=== PATIENT | male | born 1965 | race Caucasian/White ===

== ENCOUNTER 2019-08-08 12:24 | Inpatient (IN) | payer BC ==
[~2019-08-08 12:24] MED LIST: CEFAZOLIN 2 Gram 2 GM/50 ML BAG IVPB ONE; CELECOXIB 100 MG CAPSULE PO ONE; FAMOTIDINE 20MG TABLET PO ONE; MECLIZINE 25 MG TABLET PO ONE; METOCLOPRAMIDE 10 MG TABLET PO ONE; VANCOMYCIN 1GM/200ML PREMIX 1 GM/200 ML PIGGYBACK IVPB ONE
[2019-08-08 13:42] LABS: ABO GROUP A; ANTIBODY SCREEN NEGATIVE (NEGATIVE); RH TYPE POSITIVE
[2019-08-08] MEDS ORDERED: RINGERS SOLUTION,LACTATED 1,000 ML IV ONE ×2 (14:11→15:00)
[2019-08-08] MEDS ORDERED: BUPIVACAINE 0.5% W/EPI MPF 30 ML VIAL SQ ONE (14:38)
[2019-08-08] MEDS ORDERED: TRANEXAMIC ACID 1,000 MG/10 ML ML IU ONE (14:39)
[2019-08-08] MEDS ORDERED: TRANEXAMIC ACID 1,000 MG/10 ML ML IVPB ONE (14:39)
[2019-08-08] MEDS ORDERED: BISACODYL 10 MG SUPP RC PRN (15:51)
[2019-08-08] MEDS ORDERED: HYDROCODONE/APAP 10/325 TABLET PO PRN ×2 (15:51)
[2019-08-08] MEDS ORDERED: AL HYDROX/MAG HYDROX 30ML UD PO PRN (15:51)
[2019-08-08] MEDS ORDERED: ACETAMINOPHEN W/ CODEINE 300MG/60MG TABLET PO PRN ×2 (15:51)
[2019-08-08] MEDS ORDERED: HYDROMORPHONE HCL 2 MG/ML VIAL IM PRN (15:51)
[2019-08-08] MEDS ORDERED: ZOLPIDEM TARTRATE 5 MG TABLET PO PRN (15:51)
[2019-08-08] MEDS ORDERED: TRAMADOL HCL 50 MG TABLET PO PRN (15:51)
[2019-08-08] MEDS ORDERED: ONDANSETRON HCL IV 4 MG/2 ML VIAL IVP PRN (15:51)
[2019-08-08] MEDS ORDERED: MAGNESIUM HYDROXIDE 30 ML UDC PO PRN (15:51)
[2019-08-08] MEDS ORDERED: NALOXONE 0.4 MG/1 ML VIAL IVP PRN (15:51)
[2019-08-08] MEDS ORDERED: DIPHENHYDRAMINE HCL 25 MG CAPSULE PO PRN (15:51)
[2019-08-08] MEDS ORDERED: KETOROLAC 30 MG/ML VIAL IVP PRN (15:51)
[2019-08-08] MEDS ORDERED: ACETAMINOPHEN 325 MG TAB PO PRN (15:51)
[2019-08-08] MEDS: POTASSIUM CHLORIDE/D5-0.9%NACL 20 MEQ/1,000 ML BAG IV SCH (17:20)
[2019-08-08] MEDS ORDERED: OXYCODONE/APAP 10MG-325MG TABLET PO PRN (18:40)
[2019-08-08] MEDS: OXYCODONE/APAP 10MG-325MG TABLET PO PRN (18:44)
[2019-08-08] MEDS: DOCUSATE SODIUM 100 MG CAPSULE PO SCH (21:12)
[2019-08-08] MEDS: CEFAZOLIN 2 Gram 2 GM/50 ML BAG IVPB SCH (21:12)
[2019-08-09] MEDS: OXYCODONE/APAP 10MG-325MG TABLET PO PRN ×4 (00:11→12:47)
[2019-08-09] MEDS: POTASSIUM CHLORIDE/D5-0.9%NACL 20 MEQ/1,000 ML BAG IV SCH ×2 (02:23→09:17)
[2019-08-09] MEDS: CEFAZOLIN 2 Gram 2 GM/50 ML BAG IVPB SCH ×2 (05:53→13:44)
[2019-08-09 06:56] LABS: HEMATOCRIT 37.7 % (42.0-52.0); HEMOGLOBIN 12.3 gm/dl (14.0-18.0)
[2019-08-09 07:18] LABS: BLOOD UREA NITROGEN 12 mg/dL (6-20); CREATININE 0.9 mg/dL (0.7-1.2); EST GLOMERULAR FILTRATION RATE > 60 mL/min; GLUCOSE,RANDOM 127 mg/dL (74-109)
--- NOTE | 2019-08-09 08:35 | Rehab Evaluation ---
Patient Information - Patient Information Diagnosis: DJD right hip Ordered Treatment: OT Evaluate and Treat Status: Initial Evaluation Surgery: Yes (right KARYNA) Date of Surgery: 08/08/19 Past Medical/Surgical Hx: PAST MEDICAL/SURGICAL HISTORY Surgery to Affected Area? Yes Recent Surgery? Past Surgical History LTHA RTKA STOMACH SLEEVE HERNIA REPAIR PMH - Respiratory Hx Respiratory Disorders Yes Hx Sleep Apnea Yes Hx of CPAP Yes: PT INSTRUCTED TO BRING TO HOSPITAL PMH - Cardiovascular Hx Cardiovascular Disorders Yes Hx Hypertension Yes: WELL CONTROLLED WITH MEDS Exercise Tolerance Good PMH - Neuro Hx Neurological Disorders Yes Hx Headaches Yes: OCCASS PMH - GI Hx Gastrointestinal Disorders Yes Hx Weight Loss/Weight Gain Yes: 80 LB LOSS OVER LAST 1.5 YRS AFTER SLEEVE Comment: RECENT UMBILICAL HERNIA REPAIR PMH - Hx Genitourinary Disorders No PMH - Endocrine Hx Endocrine Disorders No PMH - Musculoskeletal Hx Musculoskeletal Disorders Yes Hx Arthritis Yes: RIGHT HIP Hx Gout Yes: CONTROLLED WITH MEDS PMH - Psych Hx Psychiatric Problems No PMH - Hematology/Oncology Hx Hematology/Oncology No Disorders Premorbid Status: Detail (Pt lives with spouse and multiple children in a 1 story house. He has 2 steps and khadar railings at the entrance. He has a tub/shower combination, no seat or grab bars and an elevated toilet. He and spouse share all home mgmt, meal prep and laundry tasks. 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.) Social History: Detail (Pt reports his will be taking time off work to be home.) Precautions: [place], Fall, Other (total hip precautions.) - Time With Patient Total Time Spent With Patient (Min): 15 Treatment Procedures: Detail (OT eval low complexity) Subjective Information - Subjective Information Per Patient Objective Data - Pain Pain Present: Yes (4-5/10) - Mental Status Patient Orientation: Oriented x3 - Visual Perception Appears within normal limits for therapeutic activities - ROM Within normal limits (Khadar UE AROM WNL) - Strength/Tone Within normal limits (Khadar UE strength WNL) - Coordination Appears within normal limits for therapeutic activities - Sensation Intact - ADL's/IADL's Detail (Reviewed modified LE dressing techniques, pt was already dressed and reports he was Ind. He reports he is Ind with modified LE dressing techniques from previous hip surgery and that his will be available to assist if needed. He did not feel he needed additional review. He also reports he is comfortable with tub transfer and standing in the shower.) Therapy Assessment - Therapy Assessment Detail (Pt reports Ind with modified LE dressing techniques.) Problem List - Problem List Occupational Therapy Problem List: Detail (No current IP OT problems identified.) Goals - Goals Occupational Therapy Goals: No current IP OT goals identified. Prognosis - Prognosis Good Plan - Plan Occupational Therapy Plan: Pt is discharged from IP OT at this time. Thank you for this referral.
--- NOTE | 2019-08-09 08:40 | Operative Note ---
DATE OF SURGERY: 08/08/2019 PREOPERATIVE DIAGNOSIS: End-stage arthrosis of the right hip. POSTOPERATIVE DIAGNOSIS: End-stage arthrosis of the right hip. OPERATION: Cementless right total hip arthroplasty using López and Nephew components with a size 60 no-hole Reflection cup, 20-degree offset 36 mm diameter highly crosslinked liner, a size 15 high-offset cementless Rolette stem with a +0 36 mm diameter Oxinium head. STAFF SURGEON: Ivan Lorenz MD ANESTHESIA: Spinal. PREPARATION: Chloraprep. INDIVIDUAL CONSIDERATIONS: None. FEATHER BALER: Mrs. Mila Carter PROCEDURE: The patient was taken to the operating room, placed supine on the operating room table. He had a successful induction of spinal anesthetic. He was then placed on his side right side up, and his right leg and hip were prepped and draped in the usual fashion. The patient had direct posterior approach to the hip. Sharp dissection carried down through skin and subcutaneous tissues. Small veins were coagulated with a Bovie. The tensor gluteal fascia was opened along the entire length of the incision, and deep retractors were placed. Short external rotators were identified, piriformis fossa removed exposing the posterior capsule. Posterior capsulectomy was performed. Hip was dislocated posteriorly. The patient had exposed bone on the head and the acetabulum. Femoral neck cut was then made freehand using an oscillating saw about a fingerbreadth above the lesser troc. A rim capsulectomy was performed. Starting with a 45 mm reamer to ream to the medial wall, I reamed concentrically to 59 for a 60, which fairly engaged the introitus. After irrigation, I slightly under-reamed to 58 and then I impacted a size 60 no-hole Reflection cup in roughly 20 degrees of forward flexion and 40 degrees of abduction using the extraarticular alignment guide and bony landmarks. There was solid cementless fixation. I impacted a 20-degree offset 36 mm diameter liner highly crosslinked with the offset posterior and inferiorly. This gave a solid acetabular construct. The proximal femur was delivered into the wound, and box cutting osteotome was used to remove the proximal metaphyseal bone. Mid stem reaming was done to a size 15. I started feeling cortex at maybe 13. I broached to 15. Anteversion was dialed in to the natural anteversion angle which is about 25 degrees. After calcar reaming, I had solid stability with a +0 head. I removed the trial, thoroughly irrigated it out, and then impacted a high-offset size 15 Rolette stem with solid cementless fixation, solid calcar contact. After irrigating and drying the Shaun taper, a +0 36 mm diameter Oxinium head was impacted. The hip was reduced after irrigation with solid stability. Actually, the only way to dislocate the hip would be to pull it out with a hook, it was that solid. Full anterior stability in external rotation and extension. The sciatic nerve was inspected and found to be completely intact. Hemostasis was obtained with a Bovie. I mixed 1 g of tranexamic acid with 30 mL of saline and placed this deep to the fascia. The fascia was then closed with a running #2 quill, subcu was closed in layers with running 0 quill. Skin and subcutaneous tissues were infiltrated with 30 mL of 0.5% Marcaine with epinephrine. The skin was closed with bernardo. Sterile bulky compressive FARIDEH-type dressing was applied. The patient tolerated the procedure well. Needle and sponge counts were correct. Estimated blood loss was 400 mL. We will check a hemoglobin in the morning. There were no complications. UYLI
[2019-08-09] MEDS: DOCUSATE SODIUM 100 MG CAPSULE PO SCH (09:18)
--- NOTE | 2019-08-09 09:24 | Rehab Evaluation ---
Patient Information - Patient Information Diagnosis: DJD right hip Ordered Treatment: OT Evaluate and Treat Surgery: Yes (right KARYNA) Date of Surgery: 08/08/19 Past Medical/Surgical Hx: PAST MEDICAL/SURGICAL HISTORY Surgery to Affected Area? Yes Recent Surgery? Past Surgical History LTHA RTKA STOMACH SLEEVE HERNIA REPAIR PMH - Respiratory Hx Respiratory Disorders Yes Hx Sleep Apnea Yes Hx of CPAP Yes: PT INSTRUCTED TO BRING TO HOSPITAL PMH - Cardiovascular Hx Cardiovascular Disorders Yes Hx Hypertension Yes: WELL CONTROLLED WITH MEDS Exercise Tolerance Good PMH - Neuro Hx Neurological Disorders Yes Hx Headaches Yes: [place] PMH - GI Hx Gastrointestinal Disorders Yes Hx Weight Loss/Weight Gain Yes: 80 LB LOSS OVER LAST 1.5 YRS AFTER SLEEVE Comment: RECENT UMBILICAL HERNIA REPAIR PMH - Hx Genitourinary Disorders No PMH - Endocrine Hx Endocrine Disorders No PMH - Musculoskeletal Hx Musculoskeletal Disorders Yes Hx Arthritis Yes: RIGHT HIP Hx Gout Yes: CONTROLLED WITH MEDS PMH - Psych Hx Psychiatric Problems No PMH - Hematology/Oncology Hx Hematology/Oncology No Disorders Premorbid Status: Detail (Pt lives with spouse and multiple children in a 1 story house. He has 2 steps and xin railings at the entrance. He has a tub/shower combination, no seat or grab bars and an elevated toilet. He and spouse share all home mgmt, meal prep and laundry tasks. 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.) Social History: Detail (Pt reports his will be taking time off work to be home.) Precautions: [place], Fall, Other (total hip precautions.) - Time With Patient Total Time Spent With Patient (Min): 15 Treatment Procedures: Detail (Initial Evaluation, low complexity) Subjective Information - Subjective Information Per Patient (The patient had complaints of R hip pain but did not rate pain using 0-10 pain scale.) Objective Data - Mental Status Patient Orientation: Oriented x3 - Visual Perception Appears within normal limits for therapeutic activities - ROM Not within normal limits (The patient's R hip is within total hip replacement precautions.) - Strength/Tone Not within normal limits (The patient 's R LE strength was not tested s/p surgery however is functional. The patient's gait pattern functionally demonstrates gluteal weakness. The patient's L LE strength is WNL.) - Bed Mobility Independent (The patient was independent with supine to and from sit transfer and scooting up in bed.) - Transfers Independent (The patient is independent with sit to and from stand transfer) - Balance Balance Sitting: Good - Sensation Intact - Gait Detail (The patient ambulated independently WBAT on the R LE 300ft x 1 with front wheeled walker. The patient also ambulated without device 30 feet with not iceable decreased weight bearing on the R LE and Trendelenberg gait pattern. The patient ambulated on 3 flights of stairs with one railing ( 3 steps, 7 steps, 3 steps) independently.) Therapy Assessment - Therapy Assessment Detail (The patient was independent with bed mobility, transfers and ambulation.All inpt. PT goals have been met and is discharged from inpt. PT.) Patient Education - Patient Education Teaching Topic: Exercise/Activity (The patient completed THR HEP including gluteal sets, quad sets, hamstring sets, ankle pumps, heel slides and hip abduction.) Response: Return Demonstration Teaching Method: Discussion, Handout Teaching Recipient: Patient Barriers To Learning: Age Related Problem List - Problem List Physical Therapy Problem List: Detail (Decreased R LE strength s/p surgery) Occupational Therapy Problem List: Detail (No current IP OT problems identified.) Goals - Goals Physical Therapy Goals: The patient has met all inpt. PT goals. Occupational Therapy Goals: No current IP OT goals identified. Plan - Plan Physical Therapy Plan: Pt. is discharged from inpt. PT and is to receive Home PT services. Occupational Therapy Plan: Pt is discharged from IP OT at this time. Thank you for this referral.
[2019-08-09] MEDS ORDERED: LISINOPRIL 20MG PO SCH (10:00)
[2019-08-09] MEDS ORDERED: RIVAROXABAN 10 MG TABLET PO SCH (10:00)
[2019-08-09] MEDS ORDERED: ALLOPURINOL 100MG PO SCH (10:00)
[2019-08-09] MEDS ORDERED: AMLODIPINE 10MG PO SCH (10:00)
[2019-08-09] MEDS ORDERED: FERROUS SULFATE 325 MG TAB PO SCH (10:00)
[2019-08-09] MEDS ORDERED: HYDROCHLOROTHIAZIDE 25MG PO SCH (10:00)
[2019-08-09] MEDS ORDERED: 0.9 % SODIUM CHLORIDE 10 ML VIAL IVP ONE (10:22)
[2019-08-09] MEDS ORDERED: DEXAMETHASONE 4 MG/ML 1ML VIAL IVP ONE (10:22)
[2019-08-09] MEDS ORDERED: ROPIVACAINE HCL (NAROPIN) /PF 5MG/ML 20ML VIAL IV ONE (10:22)
[2019-08-09] MEDS ORDERED: EPHEDRINE SULFATE 50 MG/ML ML IV ONE (14:24)
[2019-08-09] MEDS ORDERED: GLYCOPYRROLATE 0.2 MG/ML ML IV ONE (14:24)
[2019-08-09] MEDS ORDERED: FENTANYL PF 100MCG/2ML VIAL IV ONE (14:24)
[2019-08-09] MEDS ORDERED: LIDOCAINE 2% MDV (20MG/ML) 20ML VIAL IV ONE (14:24)
[2019-08-09] MEDS ORDERED: PROPOFOL 10 MG/ML VIAL IV ONE (14:24)
[2019-08-09] MEDS ORDERED: MIDAZOLAM HCL 2MG/2ML VIAL IV ONE (14:24)
--- NOTE | 2019-08-11 10:40 | Discharge Summary ---
DATE OF ADMISSION: 08/08/2019 DATE OF DISCHARGE: 08/09/2019 DATE OF SURGERY: 08/08/2019 HISTORY: The patient is a delightful 54-year-old male who presents with end- stage arthrosis of his right hip. He was admitted after right total hip arthroplasty. Postoperative he did great. His hospital course was unremarkable. Discharge hemoglobin is 12.7. Obviously, did not need a transfusion. Plan is to discharge to home in the care of his family. Home PT visiting nurse has been arranged. He will begin Percocet for pain, Xarelto followed by aspirin for DVT prophylaxis. Sutures will be removed by the visiting nurse in 2 weeks. He will follow up in my office in 4 weeks. FINAL DIAGNOSIS: End-stage arthrosis of the right hip. OPERATIONS/PROCEDURES: Cementless right total hip arthroplasty. DISCHARGE CONDITION: Good. YULI
== END 2019-08-09 14:25 | disposition home health service (06) | DRG 470 ==
LOC: MEDSURG 12:24
PROVIDERS: ADMIT Orthopaedic Surgery; ATTEND Orthopaedic Surgery
PROC: 0SR906A Replacement of Right Hip Joint with Oxidized Zirconium on Polyethylene Synthetic Substitute, Uncemented, Open Approach (ICD-10-PCS; principal; 2019-08-08 14:30)
DX: M16.11 Unilateral primary osteoarthritis, right hip (principal); I10 Essential (primary) hypertension; M10.9 Gout, unspecified; G47.33 Obstructive sleep apnea (adult) (pediatric)
CPT/HCPCS: 76942; 80048; 85014; 85018; 86850; 86900; 86901; J3370; J7120